=== PATIENT | male | born 1995 | race Caucasian/White ===

== ENCOUNTER 2016-11-21 16:11 | Emergency (ER) | payer BC, OTHER ==
[2016-11-21 17:03] VITALS: BP 121/75
--- NOTE | 2016-11-21 17:19 | UC ---
Skin Complaint HPI - HPI Summary HPI Summary: patient has multiple arnaldo of red scaly skin on the postier or of bothe elbows and forarms, denies itching, states it [place] when he puts gold babin on it. no pustules. Started after 2 weeks of an aquatics class. - History of Current Complaint Chief Complaint: [facility] Time Seen by Provider: 11/21/16 16:59 Stated Complaint: SKIN COMPLAINT Hx Obtained From: Patient Onset/Duration: Sudden Onset, Lasting Weeks Skin Exposure Onset/Duration: Weeks Ago Timing: Constant Onset Severity: Mild Current Severity: Mild Location: Discrete Character: Pruritus, Redness Aggravating: Wet Conditions Alleviating: Nothing Associated Signs & Symptoms: Positive: Negative Related History: Possible Reaction to: Environmental Exposure - chlorine - Allergy/Home Medications Allergies/Adverse Reactions: Allergies Allergy/AdvReac Type Severity Reaction Status Date / Time No Known Allergies Allergy Verified 11/21/16 17:03 Review of Systems Constitutional: Negative Skin: Rash Eyes: Negative ENT: Negative Respiratory: Negative Cardiovascular: Negative Gastrointestinal: Negative Genitourinary: Negative Motor: Negative Neurovascular: Negative Musculoskeletal: Negative Neurological: Negative Psychological: Negative All Other Systems Reviewed And Are Negative: Yes PMH/Surg Hx/FS Hx/Imm Hx Previously Healthy: Yes - Surgical History Surgical History: Yes Surgery Procedure, Year, and Place: right hand-12/2012, left knee 08/2013, right shoulder 07/2014. - Family History Known Family History: Positive: Other - mother has skin condition, he does not know what it is Negative: Hypertension - Social History Alcohol Use: Rare Substance Use Type: None Smoking Status (MU): Light Every Day Tobacco Smoker Type: Smokeless Tobacco Amount Used/How Often: 1.5 can per week Length of Time of Smoking/Using Tobacco: started at age 14 Have You Smoked in the Last Year: Yes Physical Exam Triage Information Reviewed: Yes Appearance: Well-Appearing, Well-Nourished, Pain Distress Vital Signs: Initial Vital Signs Temp 98.4 F 11/21/16 16:51 Pulse 74 11/21/16 16:51 Resp 14 11/21/16 16:51 BP 121/75 11/21/16 16:51 Pulse Ox 98 11/21/16 16:51 Vital Signs Reviewed: Yes Eye Exam: Normal Eyes: Positive: Conjunctiva Clear ENT Exam: Normal ENT: Positive: Normal ENT inspection, Hearing grossly normal, Pharynx normal, TMs normal Neck exam: Normal Neck: Positive: Supple, Nontender, No Lymphadenopathy Respiratory Exam: Normal Respiratory: Positive: Chest non-tender, Lungs clear, Normal breath sounds Cardiovascular Exam: Normal Cardiovascular: Positive: RRR, No Murmur, Pulses Normal Abdominal Exam: Normal Abdomen Description: Positive: Nontender, No Organomegaly, Soft Bowel Sounds: Positive: Present Musculoskeletal Exam: Normal Neurological Exam: Normal Neurological: Positive: Alert, Muscle Tone Normal Psychological Exam: Normal Skin: Positive: rashes - multiple areas on bilateral arms, red scaly rough patches, started on the elbows, and is spreading dwon the forearms, Course/Dx - Course Course Of Treatment: hx obtained, exam performed, meds reviewed, educated on care of ezcema. medication prescribed. - Differential Diagnoses - Skin Complaint Differential Diagnoses: Cellulitis - eczema, Eczema, Poison [place], Poison [place], Urticaria - Diagnoses Provider Diagnoses: eczema Discharge - Discharge Plan Condition: Stable Disposition: HOME Prescriptions: Betamethasone Dipropionate Aug [Augmented Betamethasone D] 0.05 % TOPICAL BID # 1 tube Patient Education Materials: Eczema (ED) Referrals: Non Staff,Doctor [Primary Care Provider] - Additional Instructions: Use the cream twice a day for two weeks. I recommend that you apply some aquaphor or vaseline to the area before getting in the pool until the area is healed. Follow up with any worsening symptoms.
== END 2016-11-21 17:14 | disposition home or self-care (01) ==
LOC: UCCORT 16:11
DX: L30.9 Dermatitis, unspecified (principal); F17.220 Nicotine dependence, chewing tobacco, uncomplicated
CPT/HCPCS: 99212; G0463